=== PATIENT | male | born 1995 ===

== ENCOUNTER 2021-09-23 17:27 | Emergency (ER) | payer OTHER ==
[~2021-09-23] VITALS: Ht 175.3 cm; Wt 72.6 kg
[2021-09-23 18:21] LABS: Urine Bacteria NONE SEEN /hpf (None Seen); Urine Blood Negative /uL (Negative); Urine Specific Gravity 1.002 (1.001-1.035); Urine WBC <1 /hpf (0 - 3)
[2021-09-23 18:38] LABS: Alcohol, Urine < 3.0 mg/dL (0-10); Amphetamine Screen, Urine NEGATIVE (NEGATIVE); Barbiturate Scree,Urine NEGATIVE (NEGATIVE); Benzodiazephine Screen, Urine NEGATIVE (NEGATIVE); Cannabinoid Screen, Urine NEGATIVE (NEGATIVE); Cocaine Screen, Urine NEGATIVE (NEGATIVE); Opiate Scree,Urine NEGATIVE (NEGATIVE); Phencyclidine Screen, Urine NEGATIVE (NEGATIVE)
[2021-09-23] MEDS ORDERED: SODIUM CHLORIDE 0.9% 1,000 ML IVB ONE (19:15)
[2021-09-23] MEDS: diazePAM 5 MG TAB PO PRN (20:15)
[2021-09-23 20:29] LABS: Basophils # (auto) 0 10 ^3/uL (0-0.2); Basophils % (auto) 0.4 % (0.0-2.0); Eosinophils # (auto) 0.1 10 ^3/uL (0-0.8); Eosinophils % (auto) 1.3 % (0.0-7.0); Hematocrit 43.5 % (41.0-53.0); Lymphocytes # (auto) 2.2 10 ^3/uL (0.4-5.4); Lymphocytes % (auto) 30.4 % (10.0-50.0); Mean Corpuscular Hemoglobin 30.4 pg (28.0-32.0); Mean Corpuscular Hgb Conc. 34.4 g/dL (32.0-36.0); Mean Corpuscular Volume 88.4 fL (80.0-100.0); Monocytes # (auto) 0.7 10 ^3/uL (0-1.3); Monocytes % (auto) 9.3 % (0.0-12.0); Neutrophils # (auto) 4.2 10 ^3/uL (1.6-8.6); Neutrophils % (auto) 58.6 % (37.0-80.0); Nucleated Red Blood Cells % 0.1 %; Red Blood Cells 4.92 10^6/uL (4.5-5.90); White Blood Cell 7.3 10^3/uL (4.4-10.8)
[2021-09-23 20:38] LABS: Albumin 4.4 g/dL (3.4-5.0); Calcium 9.6 mg/dL (8.5-10.1); Potassium 3.7 mmol/L (3.5-5.1)
[2021-09-23 20:41] LABS: BUN/Creatinine Ratio 11.4; Total Protein 7.9 g/dL (6.4-8.2)
[2021-09-23 20:44] LABS: Blood Alcohol < 3.0 mg/dL (0-5); Creatine Kinase IFCC 86 U/L (39-308)
[2021-09-23 20:45] LABS: Salicylate < 1.7 mg/dL (2.8-20.0)
[2021-09-23 20:57] LABS: Acetaminophen < 2.0 ug/mL (10-30)
[2021-09-24] MEDS: diazePAM 5 MG TAB PO PRN (00:58)
[2021-09-24] MEDS ORDERED: DIAZ5TAB3 PO (06:59)
[2021-09-24 07:31] VITALS: BP 140/89
== END 2021-09-24 07:46 | disposition home or self-care (01) ==
LOC: EDBD 17:31 → ER 17:31
DX: F10.230 Alcohol dependence with withdrawal, uncomplicated (principal); Z79.899 Other long term (current) drug therapy; Y90.0 Blood alcohol level of less than 20 mg/100 ml
CPT/HCPCS: 36415; 80053; 80307; 80320; 80329; 81001; 82550; 83735; 85025; 93005; 96360; 99284; J7030